=== PATIENT | female | born 1955 | race Caucasian/White ===

== ENCOUNTER → 2018-02-03 | Outpatient (CLI) | payer OTHER ==
[~2018-02-03] MED LIST: DIFLUCAN200 MG PO; OMEPRAZOLE40 MG PO
== END ==
LOC: CAT 14:45
DX: N13.30 Unspecified hydronephrosis (principal); K76.0 Fatty (change of) liver, not elsewhere classified; K57.30 Diverticulosis of large intestine without perforation or abscess without bleeding; M47.896 Other spondylosis, lumbar region; K40.20 Bilateral inguinal hernia, without obstruction or gangrene, not specified as recurrent

== ENCOUNTER 2019-12-21 16:23 | Emergency (ER) | payer OTHER ==
[~2019-12-21] VITALS: Ht 172.7 cm; Wt 120.2 kg
[~2019-12-21 16:23] MED LIST changes: +ACETAMINOPHEN325 M1 PO; +BACTRIM DS TAB1 EACH PO; +MUCINEX600 MG PO
[2019-12-21] MEDS ORDERED: FLONASE 0.05%50 MCG NARES (16:37)
[2019-12-21] MEDS ORDERED: IBUPROFEN 800800 M1 PO (16:38)
[2019-12-21] MEDS ORDERED: KEFLEX500 M1 PO (18:14)
[2019-12-21 18:31] VITALS: BP 125/74
[2019-12-21] MEDS ORDERED: DIFLUCAN150 MG PO (18:36)
== END 2019-12-21 18:31 | disposition home or self-care (01) ==
LOC: ER 16:23
DX: L03.011 Cellulitis of right finger (principal); K21.9 Gastro-esophageal reflux disease without esophagitis; Z96.653 Presence of artificial knee joint, bilateral; Z79.899 Other long term (current) drug therapy; Z87.891 Personal history of nicotine dependence